=== PATIENT | male | born 1955 | race Caucasian/White ===

== ENCOUNTER → 2019-09-28 | Outpatient (CLI) | payer OTHER ==
[~2019-09-28] MED LIST: DIATRIZOATE MEGL/DIATRIZOA SOD 30 ML BTL PO ONE; IOPAMIDOL 370 MG/ML 200 ML INFUS..BTL INJ ONE; SODIUM CHLORIDE 0.9% 50ML 50 ML ONE
[2019-09-28 16:41] LABS: BLOOD UREA NITROGEN 16 mg/dL (7-26); BUN/CREATININE RATIO 15 (6-25); EST GLOMERULAR FILTRATION RATE > 60 ML/MIN (60-)
--- NOTE | 2019-09-28 17:56 | Diagnostic Imaging Report ---
EXAM: CT Abdomen and Pelvis WITH contrast INDICATION: LEFT LOWER QUADRANT PAIN COMPARISON: None. TECHNIQUE: Abdomen and pelvis were scanned utilizing a multidetector helical scanner from the lung base to the pubic symphysis after administration of IV contrast. Coronal and sagittal reformations were obtained. Dose modulation, iterative reconstruction, and/or weight based adjustment of the mA/kV was utilized to reduce the radiation dose to as low as reasonably achievable. Routine protocol was performed. Scan was performed when during portal venous phase. IV CONTRAST: 150 mL of Omnipaque 300 ORAL CONTRAST: Water COMPLICATIONS: None RADIATION DOSE: Total DLP: 754.9 mGy-cm Estimated effective dose: (DLP x 0.015 x size factor) mSv CTDIvol has been reviewed. It is below the limits set by the Radiation Protocol Committee (RPC). FINDINGS: LINES and TUBES: None. LOWER THORAX: Unremarkable HEPATOBILIARY: No focal hepatic lesions. No biliary ductal dilation. GALLBLADDER: No radio-opaque stones or sludge. No gallbladder wall thickening. SPLEEN: No splenomegaly. No focal splenic lesion. PANCREAS: No focal masses or ductal dilatation. ADRENALS: No adrenal nodules KIDNEYS/URETERS: Kidneys enhance symmetrically. No hydronephrosis. No solid mass lesions. There is a 1.1 cm simple exophytic cyst arising from the upper left kidney. No stones. GI TRACT: No abnormal distention, or evidence of bowel obstruction. There is a short segment wall thickening of the proximal sigmoid colon (series 2 image 60, series 300 image 77) with approximately total length of 6.6 cm seen. There is mild adjacent stranding noted. There are multiple adjacent lymph nodes seen largest measuring 1.1 cm (series 2, image 60) PELVIC ORGANS/BLADDER: The bladder is unremarkable. There is prostamegaly. LYMPH NODES: In addition to above-mentioned lymph node no other lymph nodes seen.. VESSELS: No aortic aneurysm or dissection. PERITONEUM / RETROPERITONEUM: No free air or fluid. BONES: There are degenerative changes in the spine. SOFT TISSUES: There are small fat containing bilateral inguinal hernias. IMPRESSION: Short segment wall thickening of the proximal sigmoid colon with stranding could be infectious or neoplastic. Adjacent prominent lymph nodes could be reactive or neoplastic. Signed by: Bran Alonzo MD on 09/28/2019 5:53 PM
== END ==
LOC: CT 15:58
PROVIDERS: ATTEND Internal Medicine Gastroenterology
DX: R10.32 Left lower quadrant pain (principal)
CPT/HCPCS: 36415; 74177; 82565; 84520; Q9967

== ENCOUNTER → 2019-10-08 | Day surgery (SDC) | payer OTHER ==
[~2019-10-08] MED LIST changes: +ASPIRIN81 MG PO; -DIATRIZOATE MEGL/DIATRIZOA SOD 30 ML BTL PO ONE; +FENTANYL CITRATE/PF 100MCG/2 ML INJ ONE; +GABAPENTIN300 MG PO; +HYOSCYAMINE 0.125 MG TAB ONE; +IBUPROFEN400 MG PO; +INDERAL LA120 MG PO; -IOPAMIDOL 370 MG/ML 200 ML INFUS..BTL INJ ONE; +LEXAPRO20 MG PO; +LIDOCAINE HCL 2% LOCAL INJ 5 ML SDV VIAL INJ ONE; +LOSARTAN POTAS100 MG PO; +MIDAZOLAM HCL 2 MG/2 ML VIAL ONE; +ONDANSETRON HCL 4 MG ORAL DISINTEGRATING TAB ONE; +PROPOFOL IV EMULSION 10 MG/ML 20 ML VIAL ONE; +REQUIP3 MG PO; -SODIUM CHLORIDE 0.9% 50ML 50 ML ONE; +TYLENOL WITH C1 EACH PO; +ZOFRAN4 MG PO
[2019-10-08 11:25] VITALS: BP 122/78
--- NOTE | 2019-10-08 18:30 | Operative Report ---
DATE OF PROCEDURE: 10/08/2019 SURGEON: Sam Wallis MD PROCEDURE: Colonoscopy with polypectomy and biopsies. INDICATIONS FOR COLONOSCOPY: Surveillance colonoscopy, personal history of colon polyps. MEDICATIONS: The patient was done under MAC, please see anesthesiologist's note. PROCEDURE IN DETAIL: With the patient in the left lateral decubitus position, the flexible fiberoptic Olympus colonoscope was inserted into the rectum with ease and advanced all the way to the cecum. It was then withdrawn slowly. Mucosa overlying the cecum appeared to be within normal limits. One polyp was hot snared from the ascending colon. One polyp was hot snared from the transverse and two polyps were hot biopsied from the transverse colon. One polypectomy site was hemoclipped. Two polyps were hot snared from the descending colon. A fully circumferential tumor was noted in the sigmoid colon extending from 20 cm to 30 cm from the anal verge. One polyp was hot snared, one polyp was hot biopsied from the rectum. The scope was then retroflexed into the distal rectum and moderate-sized internal hemorrhoids were noted, none of which was actively bleeding. The scope was then straightened out, it was subsequently withdrawn. The patient tolerated the procedure well. IMPRESSION: 1. Ascending colon polyp, hot snare. 2. Transverse colon polyps x3, one hot snared and two hot biopsied, one polypectomy site hemoclipped x1. 3. Fully circumferential mass sigmoid colon extending from 20-30 cm from the anal verge. Multiple biopsies obtained and proximal and distal ends of the tumor were tattooed. Rectal polyps x2, one hot snare, one hot biopsied. 4. Internal hemorrhoids, none actively bleeding. PLAN: Follow up histology. The patient will need a CT of the abdomen and pelvis and a general surgical consultation. Sam Wallis MD [facility]/MODL /[id number] cc: MD Roberto Salazar MD
== END | disposition home or self-care (01) ==
LOC: OR 08:17
PROVIDERS: ATTEND Internal Medicine Gastroenterology
DX: Z09 Encounter for follow-up examination after completed treatment for conditions other than malignant neoplasm (principal); C18.6 Malignant neoplasm of descending colon; C18.7 Malignant neoplasm of sigmoid colon; D12.2 Benign neoplasm of ascending colon; D12.3 Benign neoplasm of transverse colon; D12.8 Benign neoplasm of rectum; K64.8 Other hemorrhoids; R19.7 Diarrhea, unspecified; K21.9 Gastro-esophageal reflux disease without esophagitis; G47.33 Obstructive sleep apnea (adult) (pediatric); I10 Essential (primary) hypertension; G25.81 Restless legs syndrome; R01.1 Cardiac murmur, unspecified; N20.0 Calculus of kidney; F32.9 Major depressive disorder, single episode, unspecified; F17.290 Nicotine dependence, other tobacco product, uncomplicated; Z88.6 Allergy status to analgesic agent; Z88.4 Allergy status to anesthetic agent; Z01.810 Encounter for preprocedural cardiovascular examination; Z01.812 Encounter for preprocedural laboratory examination; Z11.59 Encounter for screening for other viral diseases; Z88.1 Allergy status to other antibiotic agents; Z88.0 Allergy status to penicillin; Z88.8 Allergy status to other drugs, medicaments and biological substances; Z79.82 Long term (current) use of aspirin; Z68.32 Body mass index [BMI] 32.0-32.9, adult; Z86.73 Personal history of transient ischemic attack (TIA), and cerebral infarction without residual deficits
CPT/HCPCS: 45378; 45384; 45385; 82378; 93005; J2001; J2250; J3010; Q0162; U0002

== ENCOUNTER 2019-11-09 06:20 | Inpatient (IN) | payer OTHER ==
--- NOTE | 2019-11-04 14:24 | Diagnostic Imaging Report ---
EXAM: CHEST 2 VIEWS DATE: 11/04/2019 2:11 PM INDICATION: Preoperative evaluation COMPARISON: None FINDINGS: The trachea is midline. The lungs are symmetrically expanded without evidence for large focal consolidation, pneumothorax, or significant pleural effusion. The cardiomediastinal silhouette and pulmonary vasculature are within normal limits. No acute osseous abnormality is identified. The surrounding soft tissues are unremarkable. IMPRESSION: No acute cardiopulmonary process identified. Signed by: Dr. Sanya Hernandez MD on 11/04/2019 2:21 PM
[2019-11-04 15:22] LABS: BASOPHILS # (AUTO) 0.1 (0.0-0.1); BASOPHILS % 0.8 % (0.0-1.0); EOSINOPHILS # (AUTO) 0.2 (0.0-0.4); EOSINOPHILS % 1.4 % (0.0-6.0); HEMATOCRIT 41.8 % (38.2-49.6); HEMOGLOBIN 12.9 g/dL (14.0-18.0); LYMPHOCYTES # (AUTO) 3.5 (1.0-3.2); MEAN CORPUSCULAR HEMOGLOBIN 24.6 pg (28-32); MEAN CORPUSCULAR HGB CONC 30.9 g/dL (31-35); MEAN CORPUSCULAR VOLUME 79.6 fL (81-99); MONOCYTES # (AUTO) 0.7 (0.2-0.8); MONOCYTES % 5.8 % (4.4-11.3); NEUTROPHILS # (AUTO) 7.5 (2.1-6.9); NEUTROPHILS % 62.7 % (38.7-80.0); PLATELET COUNT 267 x10e3/uL (140-360); RED BLOOD COUNT 5.25 x10e6/uL (4.3-5.7); RED CELL DISTRIBUTION WIDTH 13.9 % (11.7-14.4)
[2019-11-04 15:42] LABS: ALANINE AMINOTRANSFERASE 9 IU/L (0-55); ALBUMIN 3.3 g/dL (3.5-5.0); ALBUMIN/GLOBULIN RATIO 0.8 (0.8-2.0); ALKALINE PHOSPHATASE 76 IU/L (40-150); ANION GAP 12.6 mmol/L (8-16); BLOOD UREA NITROGEN 15 mg/dL (7-26); BUN/CREATININE RATIO 13 (6-25); CALCIUM 9.2 mg/dL (8.4-10.2); CARBON DIOXIDE 26 mmol/L (22-29); CHLORIDE 106 mmol/L (98-107); CREATININE, SERUM 1.17 mg/dL (0.72-1.25); EST GLOMERULAR FILTRATION RATE > 60 ML/MIN (60-); GLUCOSE 90 mg/dL (74-118); POTASSIUM 4.6 mmol/L (3.5-5.1); SODIUM 140 mmol/L (136-145)
[~2019-11-09] VITALS: Ht 177.8 cm; Wt 98.4 kg
[~2019-11-09 06:20] MED LIST changes: -FENTANYL CITRATE/PF 100MCG/2 ML INJ ONE; -HYOSCYAMINE 0.125 MG TAB ONE; -LIDOCAINE HCL 2% LOCAL INJ 5 ML SDV VIAL INJ ONE; -MIDAZOLAM HCL 2 MG/2 ML VIAL ONE; -ONDANSETRON HCL 4 MG ORAL DISINTEGRATING TAB ONE; -PROPOFOL IV EMULSION 10 MG/ML 20 ML VIAL ONE; -TYLENOL WITH C1 EACH PO
[2019-11-09] MEDS ORDERED: PROPOFOL IV EMULSION 100 ML IV ONE (08:10)
[2019-11-09] MEDS ORDERED: SCOPOLAMINE 1.5 MG PATCH ONE (08:21)
[2019-11-09] MEDS ORDERED: DEXMEDETOMIDINE HCL 2 ML ONE (08:24)
[2019-11-09] MEDS ORDERED: SODIUM CHLORIDE 0.9% 50ML 50 ML ONE (08:25)
[2019-11-09] MEDS ORDERED: SODIUM CHLORIDE 0.9% 250ML 250 ML ONE (08:26)
[2019-11-09] MEDS ORDERED: HYDROMORPHONE 1MG/1ML INJ ONE (11:09)
[2019-11-09] MEDS ORDERED: SUGAMMADEX SODIUM 200 MG/2 ML VIAL IV ONE (11:45)
[2019-11-09] MEDS ORDERED: BUPIVACAINE LIPOSOME/PF 266 MG/20 ML IJ ONE (13:22)
[2019-11-09] MEDS ORDERED: BUPIVACAINE 0.25% 30ML SDV INJ ONE (13:22)
[2019-11-09] MEDS ORDERED: ONDANSETRON HCL INJ 2MG/ML 2ML 2 MG/ML VIAL IV PRN (13:45)
[2019-11-09] MEDS: SODIUM CHLORIDE 0.9% 1000ML 1,000 ML IV SCH (13:45)
[2019-11-09] MEDS ORDERED: PROPRANOLOL HCL 120 MG PO SCH (13:45)
[2019-11-09] MEDS: SODIUM CHLORIDE 0.9% 250ML IRRIG IR SCH ×3 (13:45→21:45)
[2019-11-09] MEDS: PANTOPRAZOLE 40 MG 10ML VIAL IV SCH (13:45)
[2019-11-09] MEDS ORDERED: NALOXONE HCL INJ 0.4 MG/ML AMP IV PRN (13:45)
[2019-11-09] MEDS: HYDROMORPHONE 0.2MG/ML-SOD CHL 30ML PCA SYRINGE IV PRN (14:10)
[2019-11-09] MEDS ORDERED: CEFOXITIN SOD 1 GM VIAL ONE (14:31)
[2019-11-09] MEDS ORDERED: ACETAMINOPHEN 1000 MG/100 ML IV ONE (14:31)
[2019-11-09] MEDS ORDERED: PROPOFOL IV EMULSION 10 MG/ML 20 ML VIAL ONE (14:31)
[2019-11-09] MEDS ORDERED: LIDOCAINE HCL 2% LOCAL INJ 5 ML SDV VIAL INJ ONE (14:31)
[2019-11-09] MEDS ORDERED: DEXAMETHASONE SOD PHOS INJ 4 MG/ML VIAL ONE (14:31)
[2019-11-09] MEDS ORDERED: SEVOFLURANE INHAL SOLN 250 ML PEN BTL ONE (14:31)
[2019-11-09] MEDS ORDERED: ROCURONIUM BROMIDE 10 MG/ML 5ML VIAL IV ONE (14:31)
[2019-11-09] MEDS ORDERED: ONDANSETRON HCL INJ 2MG/ML 2ML 2 MG/ML VIAL ONE (14:31)
--- NOTE | 2019-11-09 14:39 | Operative Report ---
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 OPERATIONS PERFORMED: Exploratory laparotomy, left colectomy with mobilization of the splenic flexure, and low anterior colorectal anastomosis. WASHERY ENGINEER: 1. Guillermo Ramey MD. 2. JJ Le. ANESTHESIA: General. COMPLICATIONS: None. ESTIMATED BLOOD LOSS: 100 mL. DESCRIPTION OF PROCEDURE: With the patient lying in bed in the supine position under good general endotracheal anesthesia, the abdomen was prepped with Betadine solution and draped in the usual manner. A lower midline incision was made, it was carried down through the subcutaneous tissue down to the midline fascia. The midline fascia was opened. The peritoneum was opened and the abdomen was entered. Upon entering the abdominal cavity, immediately a palpable mass became evident in the lower sigmoid colon. There was a large tattoo associated with the mass, the mass is a rather bulky tumor with some puckering of the anterior cirrhosis of the lower sigmoid colon. The second lesion was a polypoid mass, that had been previously removed and was not palpable. The rest of the abdominal exploration revealed some adenopathy at the root of the mesentery has had been seen, on the CT scan, the liver was clean of any metastatic disease. There was no other signs of abnormalities in the abdominal cavity. The left colon was then mobilized off the lateral gutter and brought medially, the splenic flexure were then slowly and carefully brought down with the EnSeal device and the transverse colon was easily then brought down. At this point, the upper descending colon was divided with an application of EUGENE-75 stapler and the mesentery of the colon was then slowly and carefully taken down using the EnSeal device. The inferior mesenteric artery was doubly ligated with 0 silk and divided. The colon was then slowly and carefully mobilized and the retrorectal space was then opened, and mobilized. The ureters were identified and preserved, and the colon was then slowly and carefully brought out of the pelvis with mobilization of the rectum. The lateral stalks were then slowly and carefully taken down with the EnSeal device. The peritoneum was then detached anteriorly and the upper rectum was identified and then cleared circumferentially. We had at least 5 cm from the lesion and the rectum was then divided between colon clamps and the specimen was sent for pathological examination. After this was done, the transverse colon easily reached down into the pelvis. The anastomosis was then performed first by creating a posterior row of 3-0 silk sutures. The proximal staple line was then removed and the clamp in the rectum was removed. An internal row of 3-0 chromic was performed. Gloves and instruments were then changed and the anastomosis was completed with interrupted anterior seromuscular 3-0 silk sutures; this gave us a satisfactory anastomosis. There was absolutely no tension. The whole area was thoroughly irrigated and perfect hemostasis was ascertained. A #10 flat Agustin-Singer drain was then left in the retrorectal space and brought out through a stab wound incision in the right lower quadrant and the abdomen was then closed in layers. The peritoneum was closed with a running suture of #1 Vicryl. The midline fascia was closed with a running suture of #1 Vicryl and the skin was closed with clips. Dressings were applied. The sponge, lap, and needle counts were correct. The patient tolerated the procedure well and returned to the recovery room in stable condition. MD NAVNEET Salazar/ROSEMARY /[id number]
[2019-11-09] MEDS: PROPRANOLOL HCL 60 MG ER CAP PO SCH (15:00)
[2019-11-09 16:10] VITALS: BP 92/62
[2019-11-09 16:23] VITALS: BP 92/62
--- OUTSIDE RECORDS SUMMARY | 2019-11-09 16:23 | XMS REPORT | Continuity of Care Document ---
Author Author [facility] Organization [facility] Address [address] [place] [address] Phone Unavailable Care Team Providers Care Commercial Specialist Name Role Phone Jose ESPINOZA Attphys Unavailable YUNIOR BURRELL Attphys Unavailable Payers Payer Name Policy Type Policy Number Effective Date Expiration Date S ource Problems This patient has no known problems. Allergies, Adverse Reactions, Alerts Allergy Name Allergy Type Status Severity Reaction(s) Onset Date Inacti ve Date Treating Clinician Comments Source promethazine DA Active U 2018-02-03 00:00:00 [facility] meperidine DA Active U 2018-02-03 00:00:00 [facility] penicillin G DA Active U 2018-02-03 00:00:00 [facility] promethazine DA Active U 2017-01-10 00:00:00 [facility] meperidine DA Active U 2017-01-10 00:00:00 [facility] penicillin G DA Active U 2017-01-10 00:00:00 [facility] .GENERAL ANESTHESIA DA Active U 2017-01-10 00:00:00 [facility] Medications This patient has no known medications. Procedures This patient has no known procedures. Results Test Description Test Time Test Comments Results Result Comments Source CHEST 2 VIEWS 2019-11-04 14:21:00 [facility] [address], [place] [address] Patient Name: NELIDA ROMEO MR #: [id number] : 1955 Age/Sex: 64/M Req #: [id number] Adm Physician: Ordered by: OSORIO ESPINOZA MD Report #: [id number] Location: OR Room/Bed: Procedure: [id number] DX/CHEST 2 VIEWS Exam Date: 11/04/19 Exam Time: 1411 REPORT STATUS: Signed EXAM: CHEST 2 VIEWS DATE: 11/04/2019 2:11 PM INDICATION: Preoperative evaluation COMPARISON: None FINDINGS: The trachea is midline. The lungs are symmetrically expanded without evidence for large focal consolidation, pneumothorax, or significant pleural effusion. The cardiomediastinal silhouette and pulmonary vasculature are within normal limits. No acute osseous abnormality is identified. The surrounding soft tissues are unremarkable. IMPRESSION: No acute cardiopulmonary process identified. Signed by: Dr. Sanya Hernandez MD on 11/04/2019 2:21 PM Dictated By: SANYA HERNANDEZ MD 142 Transcribed By: ESMER on 11/04/19 142 COPY TO: OSORIO ESPINOZA MD CT ABDOMEN/PELVIS W 2019-09-28 17:38:00 [place] [address] Patient Name: NELIDA ROMEO MR #: [id number] : 1955 Age/Sex: 64/M Req #: [id number] Adm Physician: Ordered by: YUNIOR BURRELL MD Report #: [id number] Location: CT Room/Bed: Procedure: [id number] CT/CT ABDOMEN/PELVIS W Exam Date: 09/28/19 Exam Time: 1706 REPORT STATUS: Signed EXAM: CT Abdomen and Pelvis WITH contrast INDICATION: LEFT LOWER QUADRANT PAIN COMPARISON: None. TECHNIQUE: Abdomen and pelvis were scanned utilizing a multidetector helical scanner from the lung base to the pubic symphysis after administration of IV contrast. Coronal and sagittal reformations were obtained. Dose modulation, iterative reconstruction, and/or weight based adjustment of the mA/kV was utilized to reduce the radiation dose to as low as reasonably achievable. Routine protocol was performed. Scan was performed when during portal venous phase. IV CONTRAST: 150 mL of Omnipaque 300 ORAL CONTRAST: Water COMPLICATIONS: None RADIATION DOSE: Total DLP: 754.9 mGy-cm Estimated effective dose: (DLP x 0.015 x size factor) mSv CTDIvol has been reviewed. It is below the limits set by the [facility] Protocol Committee (RPC). FINDINGS: LINES and TUBES: None. LOWER THORAX: Unremarkable HEPATOBILIARY: No focal hepatic lesions. No biliary ductal dilation. GALLBLADDER: No radio-opaque stones or sludge. No gallbladder wall thickening. SPLEEN: No splenomegaly. No focal splenic lesion. PANCREAS: No focal masses or ductal dilatation. ADRENALS: No adrenal nodules KIDNEYS/URETERS: Kidneys enhance symmetrically. No hydronephrosis. No solid mass lesions. There is a 1.1 cm simple exophytic cyst arising from the upper left kidney. No stones. GI TRACT: No abnormal distention, or evidence of bowel obstruction. There is a short segment wall thickening of the proximal sigmoid colon (series 2 image 60, series 300 image 77) with approximately total length of 6.6 cm seen. There is mild adjacent stranding noted. There are multiple adjacent lymph nodes seen largest measuring 1.1 cm (series 2, image 60) PELVIC ORGANS/BLADDER: The bladder is unremarkable. There is prostamegaly. LYMPH NODES: In addition to above-mentioned lymph node no other lymph nodes seen.. VESSELS: No aortic aneurysm or dissection. PERITONEUM / RETROPERITONEUM: No free air or fluid. BONES: There are degenerative changes in the spine. SOFT TISSUES: There are small fat containing bilateral inguinal hernias. IMPRESSION: Short segment wall thickening of the proximal sigmoid colon with stranding could be infectious or neoplastic. Adjacent prominent lymph nodes could be reactive or neoplastic. Signed by: Bran Mars MD on 09/28/2019 5:53 PM Dictated By: BRAN MARS MD 52 Transcribed By: ESMER on 09/28/191752 COPY TO: YUNIOR BURRELL MD - XR FEMUR MIN 2 VWS RT 2018-11-07 14:22:00 FAX : Jourdan Manriquez DO [place]: B St: DEP -- Name: NELIDA ROMEO [facility] : 1955 Age/S: 63/M [address] [facility] Unit #: [id number] Loc: [facility] [place] [address] Phys: Jourdan Manriquez DO Acct: [id number] Dis Date: Status: [facility] ER PHONE #: [phone] Exam Date: 10/30/2018 1146 FAX #: [phone] Reason: fall/pain Report Has Been Amended EXAMS: CPT CODE: [id number] XR FEMUR MIN 2 [place] [address] Addendum - 11/07/2018 SIGNED 11/07/2018 ADDENDUM: [id number] RA [id number] ADDENDUM: Third line should read as following: The right hip appears unremarkable. Please disregard the erroneous "left hip" comment. at 1422 Reported and signed by: Ramírez Kay M.D. Transcribed: 11/07/2018 (9723) [email or web address] Report HISTORY: Fall and pain. COMPARISON: None available. 3 views of the right hip and 2 views of the right femur: No acute fracture or dislocation. Hip joint is preserved. No AVN. The trabecular pattern and mineralization are normal. The left hip appears unremarkable. Knee joint is narrowed in all 3 compartments. The lateral view of the knee is limited due to positioning. IMPRESSION: No acute fracture or dislocation. Narrowed knee joint. The hip joint is preserved. No AVN at 1216 Reported and signed by: Ramírez Kay M.D. CC: Jourdan Manriquez DO Technologist: DAMION DOS SANTOS JR Trnscrd Date/Time/By: 10/30/2018 (0259) : By: [email or web address] Orig Print D/T: S: 10/30/2018 (0485) PAGE 1 Signed Report - XR HIP W/PEL UNI 2+V RT 2018-11-07 14:22:00 F AX: Jourdan Manriquez DO [place]: St: [facility] -- Name: NELIDA ROMEO [facility] : 1955 Age/S: 63/M [address] [facility] Unit #: [id number] Loc: [place] [address] Phys: Jourdan Manriquez DO Acct: [id number] Dis Date: Status: DEP ER PHONE #: [phone] Exam Date: 10/30/2018 1144 FAX #: [phone] Reason: fall/pain Report Has Been Amended EXAMS: CPT CODE: [id number] XR HIP W/PEL UNI 2+[place] [address] Addendum - 11/07/2018 SIGNED 11/07/2018 ADDENDUM: [id number] RA D/HIPUNICPRT ADDENDUM: Third line should read as following: The right hip appears unremarkable. Please disregard the erroneous "left hip" comment. at 1422 Reported and signed by: Ramírez Kay M.D. Transcribed: 11/07/2018 (7952) [email or web address] Report HISTORY: Fall and pain. COMPARISON: None available. 3 views of the right hip and 2 views of the right femur: No acute fracture or dislocation. Hip joint is preserved. No AVN. The trabecular pattern and mineralization are normal. The left hip appears unremarkable. Knee joint is narrowed in all 3 compartments. The lateral view of the knee is limited due to positioning. IMPRESSION: No acute fracture or dislocation. Narrowed knee joint. The hip joint is preserved. No AVN at 1216 Reported and signed by: Ramírez Kay M.D. CC: Jourdan Manriquez DO Technologist: DAMION DOS SANTOS JR Trnnyrd Date/Time/By: 10/30/2018 (7679) : By: [email or web address] Orig Print D/T: S: 10/30/2018 (6531) PAGE 1 Signed Report - XR FEMUR MIN 2 VWS RT 2018-10-30 12:16:00 FAX : Jourdan Manriquez DO [place]: B St: REG -- Name: NELIDA ROMEO [facility] : 1955 Age/S: 63/M [address] [facility] Unit #: [id number] Loc: [place] [address] Phys: Jorudan Manriquez DO Acct: [id number] Dis Date: Status: REG ER PHONE #: [phone] Exam Date: 10/30/2018 1141 FAX #: [phone] Reason: fall/pain EXAMS: CPT CODE: [id number] XR FEMUR MIN [address] [place] [address] HISTORY: Fall and pain. COMPARISON: None available. 3 views of the right hip and 2 views of the right femur: No acute fracture or dislocation. Hip joint is preserved. No AVN. The trabecular pattern and mineralization are normal. The left hip appears unremarkable. Knee joint is narrowed in all 3 compartments. The lateral view of the knee is limited due to positioning. IMPRESSION: No acute fracture or dislocation. Narrowed knee joint. The hip joint is preserved. No AVN at 1216 Reported and signed by: Ramírez Kay M.D. CC: Jourdan Manriquez DO Technologist: DAMION DOS SANTOS JR Trnscrd Date/Time/By: 10/30/2018 (7555) : By: [email or web address] Orig Print D/T: S: 10/30/2018 (8751) PAGE 1 Signed Report - XR HIP W/PEL UNI 2+V RT 2018-10-30 12:16:00 F AX: Jourdan Manriquez DO [place]: B St: REG -- Name: NELIDA ROMEO [facility] : 1955 Age/S: 63/M [address] [facility] Unit #: [id number] Loc: [place] [address] Phys: Jourdan Manriquez DO Acct: [id number] Dis Date: Status: REG ER PHONE #: [phone] Exam Date: 10/30/2018 1146 FAX #: [phone] Reason: fall/pain EXAMS: CPT CODE: [id number] XR HIP W/PEL UNI 2+[place] [address] HISTORY: Fall and pain. COMPARISON: None available. 3 views of the right hip and 2 views of the right femur: No acute fracture or dislocation. Hip joint is preserved. No AVN. The trabecular pattern and mineralization are normal. The left hip appears unremarkable. Knee joint is narrowed in all 3 compartments. The lateral view of the knee is limited due to positioning. IMPRESSION: No acute fracture or dislocation. Narrowed knee joint. The hip joint is preserved. No AVN at 1216 Reported and signed by: Ramírez Kay M.D. CC: Jourdan Manriquez DO Technologist: DAMION DOS SANTOS JR Trnscrd Date/Time/By: 10/30/2018 (1216) : By: [email or web address] Orig Print D/T: S: 10/30/2018 (7514) PAGE 1 Signed Report
[2019-11-09 19:05] VITALS: BP 101/68
[2019-11-09 20:00] VITALS: BP 101/68
[2019-11-09] MEDS: CEFOXITIN 1GM/ D5W 50ML 50 ML IV SCH (20:00)
[2019-11-10] VITALS (9 sets, daily range): BP systolic 99–124; BP diastolic 59–76
[2019-11-10] MEDS: CEFOXITIN 1GM/ D5W 50ML 50 ML IV SCH
[2019-11-10] MEDS: SODIUM CHLORIDE 0.9% 1000ML 1,000 ML IV SCH ×4 (02:06→21:45)
[2019-11-10] MEDS: SODIUM CHLORIDE 0.9% 250ML IRRIG IR SCH ×5 (02:13→21:30)
[2019-11-10 09:28] LABS: BASOPHILS % 0.2 % (0.0-1.0); HEMATOCRIT 33.5 % (38.2-49.6); HEMOGLOBIN 10.5 g/dL (14.0-18.0); LYMPHOCYTES # (AUTO) 2.4 (1.0-3.2); LYMPHOCYTES % 12.4 % (18.0-39.1); MEAN CORPUSCULAR HEMOGLOBIN 24.7 pg (28-32); MEAN CORPUSCULAR HGB CONC 31.3 g/dL (31-35); MEAN CORPUSCULAR VOLUME 78.8 fL (81-99); MONOCYTES # (AUTO) 1.3 (0.2-0.8); MONOCYTES % 6.8 % (4.4-11.3); NEUTROPHILS # (AUTO) 15.5 (2.1-6.9); PLATELET COUNT 201 x10e3/uL (140-360); RED BLOOD COUNT 4.25 x10e6/uL (4.3-5.7); RED CELL DISTRIBUTION WIDTH 13.7 % (11.7-14.4)
[2019-11-10 09:48] LABS: ANION GAP 10.2 mmol/L (8-16); CALCIUM 8.1 mg/dL (8.4-10.2); CREATININE, SERUM 1.27 mg/dL (0.72-1.25); POTASSIUM 5.2 mmol/L (3.5-5.1)
[2019-11-10] MEDS: PROPRANOLOL HCL 60 MG ER CAP PO SCH (16:00)
[2019-11-10] MEDS: PANTOPRAZOLE 40 MG 10ML VIAL IV SCH (18:04)
[2019-11-11] VITALS (7 sets, daily range): BP systolic 110–129; BP diastolic 58–70
[2019-11-11] MEDS: SODIUM CHLORIDE 0.9% 250ML IRRIG IR SCH ×4 (01:50→13:45)
[2019-11-11 05:10] LABS: BASOPHILS % 0.2 % (0.0-1.0); HEMATOCRIT 30.1 % (38.2-49.6); HEMOGLOBIN 9.5 g/dL (14.0-18.0); LYMPHOCYTES # (AUTO) 2.5 (1.0-3.2); LYMPHOCYTES % 15.1 % (18.0-39.1); MEAN CORPUSCULAR HEMOGLOBIN 24.8 pg (28-32); MEAN CORPUSCULAR HGB CONC 31.6 g/dL (31-35); MEAN CORPUSCULAR VOLUME 78.6 fL (81-99); MONOCYTES # (AUTO) 1.3 (0.2-0.8); MONOCYTES % 7.6 % (4.4-11.3); NEUTROPHILS # (AUTO) 12.9 (2.1-6.9); NEUTROPHILS % 76.4 % (38.7-80.0); PLATELET COUNT 203 x10e3/uL (140-360); RED BLOOD COUNT 3.83 x10e6/uL (4.3-5.7)
[2019-11-11 05:32] LABS: ANION GAP 9.4 mmol/L (8-16); CALCIUM 8.2 mg/dL (8.4-10.2); CREATININE, SERUM 1.21 mg/dL (0.72-1.25); POTASSIUM 4.4 mmol/L (3.5-5.1)
--- NOTE | 2019-11-11 05:35 | NUR ---
Delgadillo removed per MD order second day post op, tolerated well. Due to void in 6 to 8 hrs. Will continue to monitor. Addendum: 11/11/19 at 0948 by Salma Hyde RN Patient voided about 600cc since delgadillo was removed. No complaints of pain from urinating.
[2019-11-11] MEDS: SODIUM CHLORIDE 0.9% 1000ML 1,000 ML IV SCH ×3 (05:47→19:00)
--- NOTE | 2019-11-11 07:00 | NUR ---
Bedside report and rounding completed with oncoming nurse. Patient in bed with call light within reach. No issues or concerns note. Nurse updated that patient due to void,
[2019-11-11] MEDS: HYDROMORPHONE 0.2MG/ML-SOD CHL 30ML PCA SYRINGE IV PRN (07:29)
[2019-11-11] MEDS: PROPRANOLOL HCL 60 MG ER CAP PO SCH (11:55)
--- NOTE | 2019-11-11 13:49 | NUR ---
Patient's NG was removed per doctor's order. Patient did not complain of any pain or discomfort. Patient's nares were clean and wiped.
[2019-11-11] MEDS ORDERED: BISACODYL 10 MG SUPP PR ONE (14:15)
[2019-11-11] MEDS: PANTOPRAZOLE 40 MG 10ML VIAL IV SCH (14:32)
--- NOTE | 2019-11-11 15:15 | NUR ---
pt says he ready to go home and feeling better , paster supervisor validated his feeling , paster supervisor offered prayer and blessings . he appricated paster supervisor support and prayers chaplain Raul
--- NOTE | 2019-11-11 19:00 | NUR ---
RECEIVED PATIENT IN BEDSIDE SHIFT REPORT. PATIENT RESTING IN RECLINER AT SIDE OF BED. PAIN 04/17. CERTIFIED MASTER SAFECRACKER PUMP CHECKED WITH RN. NO S&S OF DISTRESS NOTED. BED LOCKED IN LOWEST POSITION, SIDE RAILS UPX2, CALL LIGHT IN REACH.
--- NOTE | 2019-11-11 19:05 | NUR ---
ORDERS TO D/C STATUE MAKER PUMP. WASTE COMPLETED WITH , RN. PATIENT VERBALIZED UNDERSTANDING TO CALL IF PAIN INCREASES AND HE WOULD LIKE PAIN MEDICATION.
[2019-11-11] MEDS ORDERED: HYDROMORPHONE 1MG/1ML INJ IV PRN (19:15)
[2019-11-12] VITALS (7 sets, daily range): BP systolic 113–132; BP diastolic 59–73
[2019-11-12] MEDS: BISACODYL 10 MG SUPP PR SCH ×2 (07:35→16:04)
[2019-11-12] MEDS: SODIUM CHLORIDE 0.9% 1000ML 1,000 ML IV SCH ×2 (08:31→12:15)
--- NOTE | 2019-11-12 08:54 | NUR ---
SPOKE WITH PT ABOUT HOME HEALTH ORDER, SHE STATES SHE HAS WORKED WITH BEFORE BUT DOESNT REMEMBER NAME, GAVE CHOICES OF [facility], SIGNATURE AND MAGNOLIA, SHE SIGNED CHOICE WITH SIGNATURE, WILL FAX ORDER AND REQUEST. Addendum: 11/12/19 at 0858 by Maddison Ling CM ENTERED IN ERROR, DISREGARD
[2019-11-12] MEDS: PROPRANOLOL HCL 60 MG ER CAP PO SCH (12:15)
[2019-11-12] MEDS: PANTOPRAZOLE 40 MG 10ML VIAL IV SCH (12:15)
[2019-11-12] MEDS ORDERED: HYDROCODONE/APAP 7.5MG-325MG 1 EA TAB PO PRN (17:45)
--- NOTE | 2019-11-12 18:10 | NUR ---
Nutrition Screen Note RD Recommendation for Physician: - ADAT to goal of GI Soft Plan of Care: RD following, monitoring for tolerance and adequacy Nutrition reason for involvement: Early LOS Primary Diagnose(s): colon cancer of the sigmoid colon PMH: colon polyps, no addition hx in chart Ht: 70 in Wt: 217 lb BMI: 31.1 kg/m2 IBW: [address] Assessment: (11/11) 64 YOM admitted for colon cancer requiring ex-lap and L colectomy yesterday. Pt evaluated for early LOS. Pt sleeping at time of visit, did not wake to greeting x 2. Pt appears well nourished. NGT removed this am and remains NPO for now. Chart reviewed. Labs and meds reviewed. Rec's provided. Will continue to monitor. Current Diet: NPO Malnutrition Evaluation (11/12/19) The patient does not meet criteria for a specified degree of malnutrition at this time. Will re-evaluate at follow-up as appropriate. Diet Education Needs Assessment: Diet education not indicated. Will monitor for education needs prior to discharge. Diet tolerance: pending Nutrition Care Level: low Signed: Roxann Briggs RD, LD, [facility]
--- NOTE | 2019-11-12 19:00 | NUR ---
RECEIVED PATIENT IN BEDSIDE SHIFT REPORT. PATIENT RESTING IN RECLINER AT THIS TIME. VERY MILD PAIN REPORTED. NO S&S OF DISTRESS NOTED. ABD BINDER IN PLACE. EBER WITH SEROSANGUINEOUS FLUID NOTED. IV TO R HAND RUNNING NS AT 75ML/HR.
[2019-11-13] VITALS (9 sets, daily range): BP systolic 117–137; BP diastolic 65–78
--- NOTE | 2019-11-13 00:29 | NUR ---
PATIENT REPORTS HE HAS HAD 3 LOOSE BM SINCE DINNER AND NONE HAVE HAD ANY BLOOD IN THEM. EMPTIED 85ML FROM EBER DRAIN, THIN, SEROSANGUINEOUS FLUID NOTED, CONSISTENCY OF WATER, NO CLOTS NOTED.
[2019-11-13] MEDS: SODIUM CHLORIDE 0.9% 1000ML 1,000 ML IV SCH ×2 (02:40→14:50)
[2019-11-13 04:41] LABS: BASOPHILS # (AUTO) 0.1 (0.0-0.1); BASOPHILS % 0.6 % (0.0-1.0); EOSINOPHILS # (AUTO) 0.3 (0.0-0.4); EOSINOPHILS % 1.9 % (0.0-6.0); HEMATOCRIT 35.8 % (38.2-49.6); LYMPHOCYTES # (AUTO) 2.7 (1.0-3.2); LYMPHOCYTES % 20.1 % (18.0-39.1); MEAN CORPUSCULAR HEMOGLOBIN 24.4 pg (28-32); MEAN CORPUSCULAR HGB CONC 30.7 g/dL (31-35); MEAN CORPUSCULAR VOLUME 79.4 fL (81-99); MONOCYTES # (AUTO) 0.9 (0.2-0.8); MONOCYTES % 6.6 % (4.4-11.3); NEUTROPHILS # (AUTO) 9.4 (2.1-6.9); NEUTROPHILS % 70.1 % (38.7-80.0); PLATELET COUNT 261 x10e3/uL (140-360); RED BLOOD COUNT 4.51 x10e6/uL (4.3-5.7); RED CELL DISTRIBUTION WIDTH 13.9 % (11.7-14.4)
[2019-11-13 05:05] LABS: ALANINE AMINOTRANSFERASE 12 IU/L (0-55); ALBUMIN 2.6 g/dL (3.5-5.0); ALBUMIN/GLOBULIN RATIO 0.7 (0.8-2.0); ALKALINE PHOSPHATASE 60 IU/L (40-150); ANION GAP 13.1 mmol/L (8-16); BLOOD UREA NITROGEN 15 mg/dL (7-26); BUN/CREATININE RATIO 14 (6-25); CALCIUM 8.8 mg/dL (8.4-10.2); CARBON DIOXIDE 23 mmol/L (22-29); CHLORIDE 108 mmol/L (98-107); CREATININE, SERUM 1.05 mg/dL (0.72-1.25); EST GLOMERULAR FILTRATION RATE > 60 ML/MIN (60-); GLUCOSE 97 mg/dL (74-118); POTASSIUM 4.1 mmol/L (3.5-5.1); SODIUM 140 mmol/L (136-145)
--- NOTE | 2019-11-13 07:18 | NUR ---
Bedside report complete with Tiara Hyde RN. Patient is in recliner dozing on and off. No complaints at this time.
[2019-11-13] MEDS: PROPRANOLOL HCL 60 MG ER CAP PO SCH (12:17)
[2019-11-13] MEDS: PANTOPRAZOLE 40 MG 10ML VIAL IV SCH ×3 (13:45→15:01)
--- NOTE | 2019-11-13 15:01 | NUR ---
Patient has been sleeping in the recliner today and has had no pain. He did have 2 BM's with no blood today. He has no complaints today. Will continue to monitor pain and output (urine and stool) and EBER output.
[2019-11-13] MEDS ORDERED: ROPINIROLE HCL 1 MG PO SCH (17:00)
--- NOTE | 2019-11-13 17:00 | NUR ---
Dr. Agata Ramey took the dressing off the patient and the patient will probably go home tomorrow. The EBER was redressed and continues to fill. The drain will be taken off before the patient goes home.
[2019-11-13] MEDS: ROPINIROLE HCL 1 MG TAB PO SCH (18:05)
--- NOTE | 2019-11-13 19:05 | NUR ---
received report from day nurse. patient is resting in the recliner. will continue to monitor patient.
[2019-11-14] VITALS: BP 135/74
[2019-11-14 04:00] VITALS: BP 134/68
--- NOTE | 2019-11-14 07:13 | NUR ---
report given to day nurse.patient is resting in bed. bed is in lowest position and call light is within reach.
[2019-11-14 08:00] VITALS: BP 130/74
[2019-11-14 08:42] VITALS: BP 130/74
[2019-11-14] MEDS ORDERED: ESCITALOPRAM OXALATE 10 MG TAB PO SCH (09:00)
[2019-11-14] MEDS ORDERED: GABAPENTIN 300 MG CAP PO SCH (09:00)
[2019-11-14] MEDS ORDERED: LOSARTAN POTASSIUM 100 MG TAB PO SCH (09:00)
[2019-11-14 09:28] VITALS: BP 130/74
[2019-11-14] MEDS: ROPINIROLE HCL 1 MG TAB PO SCH (09:40)
[2019-11-14] MEDS: PROPRANOLOL HCL 60 MG ER CAP PO SCH (12:00)
--- NOTE | 2019-11-14 12:28 | NUR ---
AAOX3. ACYANOTIC. DR. Charlotte ESPINOZA REMOVED EBER DRAIN AT APPROXIMATELY 1215. PATIENT TOLERATED PROCEDURE WELL. NO DISTRESS NOTED. CALL LIGHT IN REACH. SIDE RAILS UP X2. BED LOW AND LOCKED. PENDING DISCHARGE.
[2019-11-14] MEDS ORDERED: TYLENOL WITH C1 EACH PO (12:34)
[2019-11-14 12:36] VITALS: BP 122/72
--- NOTE | 2019-11-17 12:15 | NUR ---
POONAM FROM [facility], [facility] AND [facility] APPROVED FOR ADDITIONAL FROM 11/09/2019 TO 11/14/2019
== END 2019-11-14 10:00 | disposition home health service (06) | DRG 330 ==
LOC: OR 06:20 → PACU V 13:40 → MED/SURG 16:10
PROVIDERS: ADMIT Surgery; ATTEND Surgery
PROC: 0D1L0Z4 Bypass Transverse Colon to Cutaneous, Open Approach (ICD-10-PCS; 2019-11-09)
PROC: 0DTG0ZZ Resection of Left Large Intestine, Open Approach (ICD-10-PCS; principal; 2019-11-09 07:30)
DX: C18.7 Malignant neoplasm of sigmoid colon (principal); C18.6 Malignant neoplasm of descending colon; I10 Essential (primary) hypertension; Z11.59 Encounter for screening for other viral diseases; Z88.0 Allergy status to penicillin; Z88.8 Allergy status to other drugs, medicaments and biological substances; Z88.4 Allergy status to anesthetic agent; Z88.1 Allergy status to other antibiotic agents; Z91.038 Other insect allergy status
CPT/HCPCS: 36415; 71046; 80048; 80053; 85025; 86850; 86900; 88304; 93005; 96361; J0694; J1100; J1170; J2001; J2405; J7030; J7050; U0002